=== PATIENT | female | born 1965 | race Caucasian/White ===

== ENCOUNTER 2021-08-02 19:55 | Emergency (ER) | payer OTHER, MEDICARE ==
[~2021-08-02 19:55] MED LIST: ASPIRIN EC81 MG PO; CYMBALTA20 MG PO; DIGITEK125 MCG PO; HYDROCODON-ACE1 EAC2 PO; HYDROCODONE-APA1 TAB PO; JANUMET XR 50-1 EACH PO; JARDIANCE10 MG PO; K-DUR20 MEQ PO; LIPITOR40 MG PO; LISINOPRIL10 MG PO; METOPROLOL SUCC25 MG PO; NEURONTIN400 MG PO; NORVASC5 MG PO; PLAVIX75 MG PO; PREDNISONE 10MG10 MG PO; PREDNISONE 20MG20 MG PO; PROAIR HFA8.5 GM INH; PROTONIX 40MG T40 MG PO; SYNTHROID125 MCG PO; VENTOLIN (2.5 MG/3 M INH; ZOFRAN4 MG PO
[2021-08-02] MEDS ORDERED: CYCLOBENZAPRINE10 MG PO (22:23)
[2021-08-02] MEDS ORDERED: PERCOCET 5-3251 EACH PO (22:37)
== END 2021-08-02 23:06 | disposition home or self-care (01) ==
LOC: FER 19:55
DX: S52.514A Nondisplaced fracture of right radial styloid process, initial encounter for closed fracture (principal); S32.019A Unspecified fracture of first lumbar vertebra, initial encounter for closed fracture; S32.029A Unspecified fracture of second lumbar vertebra, initial encounter for closed fracture; S20.211A Contusion of right front wall of thorax, initial encounter; S30.1XXA Contusion of abdominal wall, initial encounter; S20.01XA Contusion of right breast, initial encounter; E11.9 Type 2 diabetes mellitus without complications; I25.10 Atherosclerotic heart disease of native coronary artery without angina pectoris; I10 Essential (primary) hypertension; Z98.890 Other specified postprocedural states; V49.40XA Driver injured in collision with unspecified motor vehicles in traffic accident, initial encounter; Y92.410 Unspecified street and highway as the place of occurrence of the external cause
CPT/HCPCS: 70450; 71250; 72125; 72128; 72131; 73090; 73100